=== PATIENT | female | born 1965 | race Two or more races ===

== ENCOUNTER 2019-05-25 12:14 | Emergency (ER) | payer OTHER ==
[2019-05-25 12:41] LABS: BASOPHILS % (AUTO) 0.6 %; HGB - HEMOGLOBIN 16.4 g/dL (12.0-16.0); LYMPHOCYTES # (AUTO) 0.7 10^3/uL (1.5-3.5); MEAN CORPUSCULAR HEMOGLOBIN 27.8 pg (27.0-31.0); MEAN CORPUSCULAR HGB CONC 33.1 g/dL (32.0-36.0); MEAN CORPUSCULAR VOLUME 84.1 fL (81.0-99.0); MEAN PLATELET VOLUME 9.6 fL (7.9-10.8); MONOCYTES # (AUTO) 0.5 10^3/uL (0.0-1.0); MONOCYTES % (AUTO) 9.5 %; PLT - PLATELET COUNT 288 10^3/uL (130-450); RED CELL DISTRIBUTION WIDTH 13.2 % (12.0-15.0); WHITE BLOOD COUNT 5.3 x10^3/uL (4.8-10.8)
[2019-05-25 12:54] LABS: ALBUMIN 4.5 g/dL (3.2-5.5); CALCIUM 9.6 mg/dL (8.5-10.3); CREATININE 1.3 mg/dL (0.4-1.0)
[2019-05-25] MEDS ORDERED: SODIUM CHLORIDE 0.9% 1,000 ML IV ONE ×2 (13:45)
--- NOTE | 2019-05-25 14:26 | ED Physician Documentation ---
PD HPI NVD - Stated complaint Stated Complaint: N/ABD PX - Chief complaint Chief Complaint: Abd Pain - History obtained from History obtained from: Patient, Family - History of Present Illness Timing - onset: How many days ago (3) Timing - duration: Days (3) Timing - details: Gradual onset Pain level max: 4 Pain level now: 3 Associated symptoms: Abdominal pain (crampy) Contributing factors: Sick contact (friend sick with same) Improved by: Other (nothing) Worsened by: Other (nothing) - Additonal information Additional information: Started with nausea and vomiting 3 days ago, then progressed to diarrhea. Diarrhea is now improving, but feels weak. No recent travel or antibiotics. PD PAST MEDICAL HISTORY - Past Medical History Cardiovascular: Hypertension, High cholesterol GI: GERD - Allergies Allergies/Adverse Reactions: Allergies Allergy/AdvReac Type Severity Reaction Status Date / Time No Known Drug Allergies Allergy Verified 05/25/19 12:22 - Social History Does the pt smoke?: No Smoking Status: Never smoker Does the pt drink ETOH?: No Does the pt have substance abuse?: No PD ED PE NORMAL - Vitals Vital signs reviewed: Yes - General General: Alert and oriented X 3, No acute distress, Well developed/nourished - HEENT HEENT: Pharynx benign, Other (Dry lips) - Neck Neck: Supple, no meningeal sign - Cardiac Cardiac: RRR, Strong equal pulses - Respiratory Respiratory: No respiratory distress, Clear bilaterally - Abdomen Abdomen: Soft, Non tender, Non distended - Derm Derm: Warm and dry - Extremities Extremities: No edema - Neuro Neuro: Alert and oriented X 3 - Psych Psych: Normal mood, Normal affect Results - Vitals Vitals: Vital Signs - 24 hr 05/25/19 05/25/19 05/25/19 12:19 14:02 15:29 Temperature 36.4 C L Heart Rate 104 H 88 74 Respiratory 16 18 18 Rate Blood Pressure 92/64 90/61 109/69 O2 Saturation 98 99 98 Oxygen O2 Source Room air - Labs Labs: Laboratory Tests 05/25/19 05/25/19 05/25/19 12:35 12:35 15:20 WBC 5.3 RBC 5.90 H Hgb 16.4 H Hct 49.6 H MCV 84.1 MCH 27.8 MCHC 33.1 RDW 13.2 Plt Count 288 MPV 9.6 Neut # (Auto) 4.0 Lymph # (Auto) 0.7 L Towner # (Auto) 0.5 Eos # (Auto) 0.0 Baso # (Auto) 0.0 Absolute Nucleated RBC 0.00 Nucleated RBC % 0.0 Sodium 129 L Potassium 3.2 L Chloride 86 L Carbon Dioxide 25 Anion Gap 18.0 H BUN 49 H Creatinine 1.3 H Estimated GFR (MDRD) 43 L Glucose 140 H Calcium 9.6 Total Bilirubin 1.0 AST 18 ALT 18 Alkaline Phosphatase 57 Total Protein 9.0 H Albumin 4.5 Globulin 4.5 H Albumin/Globulin Ratio 1.0 Lipase 46 Urine Color YELLOW Urine Clarity HAZY Urine pH 5.5 Ur Specific Pratt 1.020 Urine Protein 30 H Urine Glucose (UA) NEGATIVE Urine Ketones 15 H Urine Occult Blood MODERATE H Urine Nitrite NEGATIVE Urine Bilirubin NEGATIVE Urine Urobilinogen 0.2 (NORMAL) Ur Leukocyte Esterase TRACE H Urine RBC 0-5 Urine WBC 0-3 Ur Squamous Epith Cells MANY Squamous H Amorphous Sediment Moderate Urine Bacteria Rare Urine Casts 6-10 Hyaline Casts Ur Microscopic Review INDICATED Urine Culture Comments NOT INDICATED PD MEDICAL DECISION MAKING - ED course Complexity details: reviewed results, re-evaluated patient, considered differential, d/w patient ED course: 53-year-old female with significant dehydration from viral gastroenteritis. She is well-appearing, nontoxic. Afebrile. No evidence of diverticulitis. No peritoneal signs. She feels better after IV fluids. Tolerating p.o. without difficulty. No diarrhea here. She states the diarrhea is improving. Likely that this will continue to improve. Patient and family counseled regarding signs and symptoms for which I believe and urgent re-evaluation would be necessary. Patient with good understanding of and agreement to plan and is comfortable going home at this time This document was made in part using voice recognition software. While efforts are made to proofread this document, sound alike and grammatical errors may occur. Departure - Departure Disposition: 01 Home, Self Care Clinical Impression: Dehydration, Gastroenteritis Condition: Good Instructions: ED Dehydration, ED Gastroenteritis Viral Follow-Up: MONIKA CASTRO DO [Primary Care Provider] - Within 1 week Comments: You need to increase her fluid intake. Return if you worsen. This should improve over the next 24 hours. Forms: Activity restrictions Discharge Date/Time: 05/25/19 15:41
[2019-05-25] MEDS ORDERED: PROMETHAZINE INJ 25 MG in SODIUM CHLORIDE 0.9% 50 ML IV STA (14:42)
[2019-05-25 15:30] VITALS: BP 109/69
[2019-05-25 15:52] LABS: GLUCOSE, URINE (UA) NEGATIVE (NEGATIVE); KETONES,URINE (UA) 15 mg/dL (NEGATIVE); LEUKOCYTE ESTERASE, URINE TRACE (NEGATIVE); NITRITE,URINE NEGATIVE (NEGATIVE); OCCULT BLOOD,URINE MODERATE (NEGATIVE); PH,URINE 5.5 PH (5.0-7.5); PROTEIN,URINE 30 mg/dL (NEGATIVE); UROBILINOGEN,URINE 0.2 (NORMAL) E.U./dL (NORMAL)
[2019-05-25 16:02] LABS: CLARITY,URINE HAZY (CLEAR)
[2019-05-25 16:10] LABS: AMORPHOUS SEDIMENT,UR Moderate /LPF; BACTERIA,URINE Rare /HPF (None Seen); BILIRUBIN,URINE NEGATIVE (NEGATIVE); CASTS, URINE 6-10 Hyaline Casts /LPF; ICTOTEST,URINE NEGATIVE; RBC,URINE 0-5 /HPF (0-5); SQUAMOUS EPITHELIAL CELL,UR MANY Squamous (<= Few)
== END 2019-05-25 15:41 | disposition home or self-care (01) ==
LOC: ED 12:14
DX: A08.4 Viral intestinal infection, unspecified (principal); E86.0 Dehydration; I10 Essential (primary) hypertension
CPT/HCPCS: 36415; 80053; 81001; 81003; 83690; 85025; 87086; 96360; 99281